=== PATIENT | male | born 1950 | race Two or more races ===

== ENCOUNTER 2023-09-07 10:25 | Inpatient (IN) | payer OTHER ==
[~2023-09-07] VITALS: Ht 170.2 cm; Wt 81.6 kg
--- NOTE | 2023-09-07 10:37 | NUR ---
PTE ALERTA Y ORIENTADO X3 REFIERE QUE FUE OPERADO POR TOMMY CAMARILLO. [facility] . REFIERE QUE HACE 2 AUGUSTINE REFIERE DOLOR Y HEMATOMA. SE MIDEN S/V Y SE UBICA.
[2023-09-07 11:53] LABS: HEMATOCRIT 28.4 % (39.0-48.0); HEMOGLOBIN 9.7 g/dL (13-16.00); MEAN CELL VOLUME 82.8 fL (80.0-100.00); MEAN CORPUSCULAR HEMOGLOBIN 28.2 pg (27.00-32.0); MEAN CORPUSCULAR HGB CONC 34.1 g/dl (32.0-36.0); PLATELET COUNT 351 K/uL (150-450); RED BLOOD COUNT 3.43 M/uL (4.00-6.00); RED CELL DISTRIBUTION WIDTH 14.3 % (11.5-14.5)
--- NOTE | 2023-09-07 12:03 | NUR ---
SE RECIBE PTE Y SE LE ORIENTA SOBRE TX, EL MISMO ENTIENDE. SE LE REALIZA EULALIO DE MUESTRA SGUN ORDEN MEDICA, BAJO MEDIDAS ASEPTICAS.
[2023-09-07 12:19] LABS: ALBUMIN 3.5 gm/dL (3.4-5.0); BILIRUBIN TOTAL 2.28 mg/dL (0.3-1.2); CALCIUM 9.3 mg/dL (8.5-10.1); CREATININE SERUM 0.69 mg/dL (0.70-1.30); GFR 112.39; POTASSIUM 4.22 mEq/L (3.5-5.1); TOTAL PROTEIN 7.5 gm/dL (6.4-8.2)
[2023-09-07 12:20] LABS: INR 0.96; PARTIAL THROMBOPLASTIN TIME 20.9 SECONDS (22.0-34.0); PROTHROMBIN TIME 10.1 SECONDS (9.0-11.5)
--- NOTE | 2023-09-07 17:14 | NUR ---
PTE SE UBICA EN DEXTER CON BARANDAS ELEVADAS.PENDIENTE A EVALUACION DE MEDICINA INTERNA.
[2023-09-07] MEDS ORDERED: ACETAMINOPHEN 500 MG GEL..CAP PO PRN (17:45)
[2023-09-07] MEDS ORDERED: PIPERACILLIN/TAZOBACTAM SODIUM 3.375 GM in DEXTROSE 5 % IN WATER 100 ML IV SCH (18:00)
[2023-09-07] MEDS ORDERED: 0.9 % SODIUM CHLORIDE 1,000 ML IV SCH (18:00)
[2023-09-07] MEDS ORDERED: ENALAPRILAT DIHYDRATE 1.25 MG/ML VIAL IV PRN (18:15)
[2023-09-07 21:46] LABS: COL EPI 94 SECONDS (82-175)
[2023-09-07 22:30] LABS: PH,URINE 7.5 (5.0-8.0); URINE APPEARANCE Clear; URINE BILIRRUBIN Negative (NEGATIVE); URINE BLOOD Negative; URINE COLOR Yellow; URINE GLUCOSE Negative (NEGATIVE); URINE LEUKOCYTE Negative; URINE NITRATE Negative; URINE PROTEIN Negative (NEGATIVE)
[2023-09-07 22:33] LABS: URINE BACTERIA 7.5 uL (0.0-1933); URINE RBC 2.8 uL (0.0-20.8)
[2023-09-07 22:36] LABS: URINE EPITHELIAL CELLS 0.7 uL (0.0-38.8); URINE WBC 1.2 uL (0.0-23.2)
[2023-09-07] MEDS ORDERED: FERROUS SULFATE 325 MG TABLET.EC PO SCH (22:51)
[2023-09-07] MEDS ORDERED: LEUCOVORIN CALCIUM 5 MG TABLET PO SCH (22:52)
[2023-09-08 05:36] LABS: HEMOGLOBIN 9.2 g/dL (13-16.00); MEAN CELL VOLUME 84.4 fL (80.0-100.00); MEAN CORPUSCULAR HEMOGLOBIN 28.6 pg (27.00-32.0); MEAN CORPUSCULAR HGB CONC 33.9 g/dl (32.0-36.0); PLATELET COUNT 314 K/uL (150-450); RED CELL DISTRIBUTION WIDTH 14.6 % (11.5-14.5)
[2023-09-08] MEDS ORDERED: FAMOTIDINE/PF 20 MG in 0.9 % SODIUM CHLORIDE 8 ML IV PUSH SCH (09:00)
[2023-09-08] MEDS ORDERED: ATORVASTATIN CA40 MG (16:07)
[2023-09-08] MEDS ORDERED: BRILINTA60 MG (16:07)
[2023-09-08] MEDS ORDERED: METOPROLOL SUCC25 MG (16:07)
[2023-09-08] MEDS ORDERED: LISINOPRIL40 MG (16:07)
[2023-09-08] MEDS ORDERED: PLAVIX75 MG (16:08)
[2023-09-08] MEDS ORDERED: CHILDREN'S ASPI81 MG (16:08)
[2023-09-08] MEDS ORDERED: AMLODIPINE BESYL5 MG (16:08)
== END 2023-09-09 20:19 | disposition home or self-care (01) | DRG 605 ==
LOC: ER 10:26 → SEC-K 18:37 → MEDI 18:37
PROVIDERS: General Practice; Internal Medicine Hematology & Oncology; ADMIT Specialist/Technologist, Other Nephrology; ATTEND Specialist/Technologist, Other Nephrology
PROC: B54CZZZ Ultrasonography of Left Lower Extremity Veins (ICD-10-PCS; principal; 2023-09-07)
PROC: BQ2SYZZ Computerized Tomography (CT Scan) of Left Lower Extremity using Other Contrast (ICD-10-PCS; 2023-09-07)
PROC: B24BZZZ Ultrasonography of Heart with Aorta (ICD-10-PCS; 2023-09-07)
DX: S80.12XA Contusion of left lower leg, initial encounter (principal); I80.222 Phlebitis and thrombophlebitis of left popliteal vein; D64.9 Anemia, unspecified; Z79.01 Long term (current) use of anticoagulants; I25.10 Atherosclerotic heart disease of native coronary artery without angina pectoris; I10 Essential (primary) hypertension